=== PATIENT | female | born 1965 | race Caucasian/White ===

== ENCOUNTER 2022-12-12 13:41 | Emergency (ER) | payer MEDICAID ==
[~2022-12-12] VITALS: Ht 170.2 cm; Wt 70.0 kg
[2022-12-12 13:54] VITALS: BP 155/105; PULSE 81; RESP 16; TEMP 97.3; O2SAT 99
[2022-12-12 15:21] LABS: BASOPHILS # (AUTO) 0.1 X10'3 (0-0.2); BASOPHILS % (AUTO) 1.3 % (0-1); EOSINOPHILS # (AUTO) 0.1 X10'3 (0-0.9); HEMATOCRIT 39.2 % (35.0-45.0); HEMOGLOBIN 12.9 g/dl (12.0-16.0); LYMPHOCYTES # (AUTO) 2.3 X10'3 (1.1-4.8); MEAN CORPUSCULAR HEMOGLOBIN 28.2 PG (27.0-31.0); MEAN CORPUSCULAR VOLUME 85.5 FL (78-98); MEAN PLATELET VOLUME 8.4 FL (7.4-10.4); MONOCYTES # (AUTO) 0.5 X10'3 (0-0.9); MONOCYTES % (AUTO) 7.1 % (2-12); NEUTROPHILS # (AUTO) 3.6 X10'3 (1.8-7.7); NEUTROPHILS % (AUTO) 54.6 % (42-75); PLATELET COUNT 307 X10'3 (140-440); RED BLOOD COUNT 4.58 X10'6 (4.20-5.60); RED CELL DISTRIBUTION WIDTH 15.3 % (11.5-14.5); WHITE BLOOD COUNT 6.6 X10'3 (4.5-11.0)
[2022-12-12 15:36] LABS: ALANINE AMINOTRANSFERASE 14 U/L (12-78); ALBUMIN 3.7 G/DL (3.4-5.0); ALKALINE PHOSPHATASE 69 IU/L (46-116); ANION GAP 5 (8-16); ASPARTATE AMINO TRANSFERASE 17 U/L (10-37); BILIRUBIN,TOTAL 0.3 MG/DL (0.1-1.0); BLOOD UREA NITROGEN 9 MG/DL (7-18); BUN/CREATININE RATIO 13.2 (10.0-20.0); CALCIUM 9.6 MG/DL (8.5-10.1); CHLORIDE 105 MMOL/L (99-107); CREATININE 0.68 MG/DL (0.40-0.90); GLUCOSE 122 MG/DL (70-104); POTASSIUM 3.4 MMOL/L (3.5-5.1); SODIUM 138 MMOL/L (135-145); TOTAL CARBON DIOXIDE 27.8 MMOL/L (24-32); TOTAL PROTEIN 7.5 G/DL (6.4-8.2); eCRCL 87 ML/MIN; eGFR 89 ML/MIN
[2022-12-12 15:43] LABS: PRO BRAIN NATRIURETIC PEPTIDE 161 PG/ML (0-125)
[2022-12-12 19:41] LABS: ETHANOL < 10 MG/DL (<10); THYROID STIMULATING HORMONE 4.13 ulU/ml (0.34-4.50)
[2022-12-12] MEDS ORDERED: potassium Cl 20 mEq SR tablet PO STA (20:21)
[2022-12-12] MEDS ORDERED: magnesium oxide 400mg tablet PO ONE (20:25)
[2022-12-12] MEDS ORDERED: meclizine 12.5mg tablet PO ONE (20:25)
[2022-12-12] MEDS ORDERED: MECL-302 PO (20:26)
== END 2022-12-12 20:52 | disposition home or self-care (01) ==
LOC: ER 13:41
DX: R42 Dizziness and giddiness (principal); R06.02 Shortness of breath; R45.1 Restlessness and agitation; R51.9 Headache, unspecified; H93.13 Tinnitus, bilateral; R09.81 Nasal congestion; F41.9 Anxiety disorder, unspecified; E87.6 Hypokalemia; Z90.710 Acquired absence of both cervix and uterus
CPT/HCPCS: 36415; 80053; 80320; 83880; 84443; 84484; 85025; 93005; 99284; J8597

== ENCOUNTER 2023-01-28 11:35 | Inpatient (IN) | payer MEDICAID, OTHER ==
[~2023-01-28] VITALS: Ht 172.7 cm; Wt 67.2 kg
[~2023-01-28 11:35] MED LIST: MECL-302 PO
[2023-01-28 14:50] LABS: BASOPHILS # (AUTO) 0.1 X10'3 (0-0.2); BASOPHILS % (AUTO) 0.9 % (0-1); EOSINOPHILS # (AUTO) 0.1 X10'3 (0-0.9); EOSINOPHILS % (AUTO) 1.3 % (0-6); HEMATOCRIT 39.3 % (35.0-45.0); LYMPHOCYTES # (AUTO) 2.7 X10'3 (1.1-4.8); LYMPHOCYTES % (AUTO) 33.2 % (21-51); MEAN CORPUSCULAR HEMOGLOBIN 28.5 PG (27.0-31.0); MEAN CORPUSCULAR VOLUME 86.2 FL (78-98); MEAN PLATELET VOLUME 8.5 FL (7.4-10.4); MONOCYTES # (AUTO) 0.6 X10'3 (0-0.9); MONOCYTES % (AUTO) 7.7 % (2-12); NEUTROPHILS # (AUTO) 4.6 X10'3 (1.8-7.7); NEUTROPHILS % (AUTO) 56.9 % (42-75); PLATELET COUNT 277 X10'3 (140-440); RED BLOOD COUNT 4.55 X10'6 (4.20-5.60); RED CELL DISTRIBUTION WIDTH 15.2 % (11.5-14.5); WHITE BLOOD COUNT 8.1 X10'3 (4.5-11.0)
[2023-01-28 15:01] LABS: ALANINE AMINOTRANSFERASE 24 U/L (12-78); ALKALINE PHOSPHATASE 71 IU/L (46-116); ANION GAP 8 (8-16); ASPARTATE AMINO TRANSFERASE 32 U/L (10-37); BILIRUBIN,TOTAL 0.4 MG/DL (0.1-1.0); BLOOD UREA NITROGEN 7 MG/DL (7-18); BUN/CREATININE RATIO 10.9 (10.0-20.0); CALCIUM 9.5 MG/DL (8.5-10.1); CHLORIDE 102 MMOL/L (99-107); CREATININE 0.64 MG/DL (0.40-0.90); GLUCOSE 97 MG/DL (70-104); POTASSIUM 3.4 MMOL/L (3.5-5.1); SODIUM 138 MMOL/L (135-145); TOTAL CARBON DIOXIDE 28.5 MMOL/L (24-32); TOTAL PROTEIN 7.9 G/DL (6.4-8.2); eCRCL 95 ML/MIN; eGFR > 90 ML/MIN
[2023-01-28 15:08] LABS: LIPASE 21 U/L (16-77)
[2023-01-28 15:09] LABS: ETHANOL < 10 MG/DL (<10)
[2023-01-28 15:46] LABS: BILIRUBIN,URINE NEGATIVE (Neg); CLARITY,URINE CLEAR (Clear); COLOR,URINE YELLOW (Yellow); GLUCOSE, URINE NEGATIVE (Neg); KETONES,URINE TRACE mg/dl (Neg); LEUKOCYTE ESTERASE ,URINE NEGATIVE (Neg); NITRITES, URINE NEGATIVE (Neg); OCCULT BLOOD,URINE SMALL (Neg); PH,URINE 5.5 (4.8-8.0); PROTEIN,URINE NEGATIVE (Neg); UROBILINOGEN,URINE 0.2 E.U/dL (0.2-1.0)
[2023-01-28 15:47] LABS: UA COLLECTION TYPE VOIDED
[2023-01-28 15:52] LABS: URINE AMPHETAMINE SCREEN NEGATIVE (Neg); URINE BARBITUATE SCREEN NEGATIVE (Neg); URINE BENZODIAZEPINES SCREEN NEGATIVE (Neg); URINE CANNABINOID SCREEN POSITIVE (Neg); URINE COCAINE SCREEN NEGATIVE (Neg); URINE METHADONE SCREEN NEGATIVE (Neg); URINE OPIATE SCREEN NEGATIVE (Neg); URINE PHENCYCLIDINE SCREEN NEGATIVE (Neg)
[2023-01-28 16:00] LABS: MUCUS STRANDS FEW /LPF (Neg); SQUAMOUS EPITHELIAL CELL,UR FEW /LPF (FEW)
[2023-01-28 16:02] LABS: BACTERIA,URINE FEW /HPF (Neg); RBC,URINE 0-2 /HPF (0-2); WBC,URINE 0-4 /HPF (0-4)
[2023-01-28] MEDS ORDERED: iohexol 350MG/ML 100ml bottle IV ONE (16:08)
--- NOTE | 2023-01-28 16:09 | NUR ---
[facility] ACCEPTED PT
[2023-01-28] MEDS ORDERED: mag hydrox/Alum hydrox/simeth 30ml oral suspension PO PRN (17:25)
[2023-01-28] MEDS ORDERED: ondansetron/PF 4mg/2ml inj IV PRN (17:25)
[2023-01-28] MEDS ORDERED: magnesium Cl slow-release 64mg tablet PO PRN (17:25)
[2023-01-28] MEDS ORDERED: magnesium 4gm in 100ml NS 100 ML IV PRN (17:25)
[2023-01-28] MEDS ORDERED: potassium Cl 40MEQ/1/2NS 520ml 520 ML IV PRN (17:25)
[2023-01-28] MEDS ORDERED: magnesium 2GM in 50ml NS 50 ML IV PRN (17:25)
[2023-01-28] MEDS ORDERED: acetaminophen 325mg tablet PO PRN (17:25)
[2023-01-28] MEDS ORDERED: magnesium hydroxide 30ml (MOM) UD suspension PO PRN (17:25)
[2023-01-28] MEDS ORDERED: LORazepam 1 MG tablet PO ONE (18:10)
[2023-01-28 19:30] VITALS: BP 137/92; PULSE 64; RESP 14; TEMP 97.3; O2SAT 97
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
[2023-01-28] MEDS: docusate sod 100mg capsule PO SCH (20:00)
[2023-01-28] MEDS ORDERED: K and/or MAG REPLACEMENT MC SCH (20:00)
[2023-01-28] MEDS: potassium Cl 20 mEq SR tablet PO PRN (21:16)
[2023-01-28] MEDS: acetaminophen 325mg tablet PO SCH (21:23)
[2023-01-28] MEDS: heparin, porcine 5000 units/ml vial SQ SCH (21:24)
[2023-01-28 22:00] VITALS: BP 119/78; PULSE 55; RESP 21; TEMP 97.6; O2SAT 96
[2023-01-29] MEDS: potassium Cl 20 mEq SR tablet PO PRN (01:34)
[2023-01-29 02:00] VITALS: BP 122/81; PULSE 56; RESP 15; TEMP 98; O2SAT 96
[2023-01-29 06:00] VITALS: BP 144/104; PULSE 89; RESP 15; TEMP 98.1; O2SAT 98
--- NOTE | 2023-01-29 06:11 | NUR ---
Problems reprioritized. Patient report given, questions answered & plan of care reviewed with Sunita SHAH. Pt stable at shift change.
[2023-01-29 07:05] LABS: APTT 29 SECONDS (22-32); PROTHROMBIN TIME 11.2 SECONDS (9.0-12.0)
[2023-01-29 07:14] LABS: BASOPHILS # (AUTO) 0.1 X10'3 (0-0.2); BASOPHILS % (AUTO) 1.5 % (0-1); EOSINOPHILS # (AUTO) 0.2 X10'3 (0-0.9); EOSINOPHILS % (AUTO) 3.5 % (0-6); HEMATOCRIT 36.3 % (35.0-45.0); HEMOGLOBIN 12.1 g/dl (12.0-16.0); LYMPHOCYTES # (AUTO) 2.7 X10'3 (1.1-4.8); LYMPHOCYTES % (AUTO) 50.4 % (21-51); MEAN CORPUSCULAR HEMOGLOBIN 28.5 PG (27.0-31.0); MEAN CORPUSCULAR HGB CONC 33.3 g/dL (33.0-36.5); MEAN CORPUSCULAR VOLUME 85.5 FL (78-98); MEAN PLATELET VOLUME 8.7 FL (7.4-10.4); MONOCYTES # (AUTO) 0.4 X10'3 (0-0.9); MONOCYTES % (AUTO) 7.9 % (2-12); NEUTROPHILS % (AUTO) 36.7 % (42-75); PLATELET COUNT 237 X10'3 (140-440); RED BLOOD COUNT 4.24 X10'6 (4.20-5.60); RED CELL DISTRIBUTION WIDTH 14.8 % (11.5-14.5); WHITE BLOOD COUNT 5.4 X10'3 (4.5-11.0)
[2023-01-29 07:22] LABS: ALANINE AMINOTRANSFERASE 22 U/L (12-78); ALBUMIN 3.4 G/DL (3.4-5.0); ALBUMIN/GLOBULIN RATIO 1.1 (1.1-1.5); ALKALINE PHOSPHATASE 64 IU/L (46-116); ANION GAP 7 (8-16); ASPARTATE AMINO TRANSFERASE 30 U/L (10-37); BILIRUBIN,TOTAL 0.5 MG/DL (0.1-1.0); BLOOD UREA NITROGEN 7 MG/DL (7-18); BUN/CREATININE RATIO 11.7 (10.0-20.0); CALCIUM 9.2 MG/DL (8.5-10.1); CHLORIDE 106 MMOL/L (99-107); GLUCOSE 91 MG/DL (70-104); MAGNESIUM 2.1 MG/DL (1.5-2.4); PHOSPHORUS 3.4 MG/DL (2.3-4.5); POTASSIUM 4.2 MMOL/L (3.5-5.1); SODIUM 140 MMOL/L (135-145); TOTAL CARBON DIOXIDE 26.6 MMOL/L (24-32); TOTAL PROTEIN 6.5 G/DL (6.4-8.2); eCRCL 102 ML/MIN; eGFR > 90 ML/MIN
[2023-01-29 08:00] VITALS: RESP 15; O2SAT 98
[2023-01-29] MEDS: docusate sod 100mg capsule PO SCH (08:00)
[2023-01-29] MEDS: acetaminophen 325mg tablet PO SCH (08:38)
[2023-01-29] MEDS: heparin, porcine 5000 units/ml vial SQ SCH (08:39)
--- NOTE | 2023-01-29 15:01 | NUR ---
PAGER ID: [phone] MESSAGE: [id number], Jamal Eason. Pt is asking for a work release form, can I bring it to you to sign please? Sunita CERRATO
--- NOTE | 2023-01-29 17:17 | NUR ---
Pt stable for discharge per Dr. Lucas. All discharge instructions reviewed with patient and all questions answered, pt verbalized understanding. No new medications ordered. PIV discontinued, cannula intact. Tele discontinued. All belongings collected and sent with patient. Wheeled to lobby via nursing staff and picked up by son.
== END 2023-01-29 15:08 | disposition home or self-care (01) | DRG 384 ==
LOC: ER 11:36 → ED HOLD 17:32 → EDBEDREQ 18:08 → PCU 3S 19:30
PROVIDERS: ADMIT Internal Medicine; ATTEND Internal Medicine
PROC: B32T1ZZ Computerized Tomography (CT Scan) of Left Pulmonary Artery using Low Osmolar Contrast (ICD-10-PCS; principal; 2023-01-28)
PROC: B3201ZZ Computerized Tomography (CT Scan) of Thoracic Aorta using Low Osmolar Contrast (ICD-10-PCS; 2023-01-28)
PROC: B32S1ZZ Computerized Tomography (CT Scan) of Right Pulmonary Artery using Low Osmolar Contrast (ICD-10-PCS; 2023-01-28)
DX: S20.212A Contusion of left front wall of thorax, initial encounter (principal); F12.10 Cannabis abuse, uncomplicated; F41.9 Anxiety disorder, unspecified; R79.89 Other specified abnormal findings of blood chemistry; S80.12XA Contusion of left lower leg, initial encounter; S80.11XA Contusion of right lower leg, initial encounter; V47.5XXA Car driver injured in collision with fixed or stationary object in traffic accident, initial encounter; Y93.89 Activity, other specified; Y92.89 Other specified places as the place of occurrence of the external cause; Y99.8 Other external cause status; Z88.5 Allergy status to narcotic agent; Z90.710 Acquired absence of both cervix and uterus; Z88.6 Allergy status to analgesic agent; Z90.49 Acquired absence of other specified parts of digestive tract; Z87.891 Personal history of nicotine dependence
CPT/HCPCS: 36415; 70450; 71045; 71275; 80053; 80305; 80320; 81001; 83690; 83735; 84100; 84484; 85025; 85610; 85730; 87081; 93306; 99285; A6402; J1644; J3490; Q9967

== ENCOUNTER 2023-03-29 16:27 | Emergency (ER) | payer MEDICAID, OTHER ==
[~2023-03-29] VITALS: Ht 172.7 cm; Wt 68.2 kg
[2023-03-29 16:28] VITALS: BP 176/149; PULSE 91; RESP 16; TEMP 98.9; O2SAT 100
== END 2023-03-29 16:51 | disposition home or self-care (01) ==
LOC: ER 16:27
DX: R06.4 Hyperventilation (principal); Z88.5 Allergy status to narcotic agent; Z79.899 Other long term (current) drug therapy
CPT/HCPCS: 99281